=== PATIENT | female | born 1995 ===

== ENCOUNTER 2017-05-01 15:57 | Emergency (ER) | payer BC ==
[~2017-05-01] VITALS: Ht 170.2 cm; Wt 61.2 kg
--- NOTE | 2017-05-01 16:05 | ER Report ---
History and Physical Time Seen By MD: 16:05 HPI/ROS CHIEF COMPLAINT: Headache HISTORY OF PRESENT ILLNESS: This is a 21-year-old female who presents to the emergency department from the urgent care via EMS for a headache. According to the patient she was in bed last night had a drink of water and then "passed out " according to her boyfriend she wasn't on a coherent after she passed out they did come to the emergency department last night for evaluation however after sitting on the waiting room for a little while she didn't want to wait anymore and was feeling better decided to go home. Patient states that she still having a left-sided sort of parietal type of headache. Patient went to the urgent care for evaluation they were concerned with the headache, as well as having " passing out episodes" at urgent care. After talking to the patient the passing out episode was while they were trying to start an IV. Patient states she does have lower abdominal pain as well. Blurred vision with this headache. This is the worst headache she ever had. Patient denies traumatic events leading up to the headache. Patient denies fevers, chest pain, shortness of breath, nausea, vomiting, diarrhea or rashes. REVIEW OF SYSTEMS: Constitutional: No fever, no chills. Eyes: No discharge. ENT: No sore throat. Cardiovascular: No chest pain, no palpitations. Respiratory: No cough, no shortness of breath. Gastrointestinal: As above. Genitourinary: No hematuria. Musculoskeletal: No back pain. Skin: No rashes. Neurological: As above. Allergies: Coded Allergies: No Known Drug Allergies (Unverified , 05/01/17) Home Meds Active Scripts Ondansetron (ZOFRAN ODT) 4 Mg Tab.rapdis, 4 MG PO Q6H Y for NAUSEA/VOMITING, # 20 TAB.DIOMEDES Prov:FELISA ALTMAN [employer] 05/01/17 Past Medical/Surgical History Patient has a past medical and surgical history of tonsillitis, migraine headaches, wisdom teeth extraction, concussions. Reviewed Nurses Notes: Yes Constitutional Vital Sign - Last 24 Hours 05/01/17 05/01/17 05/01/17 05/01/17 15:57 15:58 16:27 16:34 Pulse 59 71 Resp 16 B/P (MAP) 118/90 118/90 (99) 121/88 (99) Pulse Ox 96 98 O2 Delivery Room Air 05/01/17 05/01/17 05/01/17 05/01/17 16:37 16:37 16:38 16:57 Pulse 70 64 62 74 B/P (MAP) 125/77 (93) 121/88 (99) 130/83 (99) 125/77 (93) 130/83 (99) Pulse Ox 97 05/01/17 05/01/17 05/01/17 05/01/17 17:27 17:32 17:47 18:02 Pulse 76 58 67 66 Pulse Ox 96 96 98 98 05/01/17 05/01/17 05/01/17 05/01/17 18:07 18:12 18:17 18:22 Pulse 66 61 70 81 Pulse Ox 97 98 97 98 05/01/17 05/01/17 05/01/17 18:27 18:31 18:32 Pulse 80 B/P (MAP) 104/59 (74) Pulse Ox 99 97 Intake and Output 05/01/17 05/01/17 05/02/17 15:00 23:00 07:00 Intake Total 2000 ml Balance 2000 ml Physical Exam General Appearance: The patient is alert, has no immediate need for airway protection and no signs of toxicity. Eyes: Pupils equal and round no pallor or injection. ENT, Mouth: Mucous membranes are moist. Posterior oropharynx erythema, 2+ tonsillar hypertrophy, uvula midline no edema. TMs intact, pearly lauren, no injection. Respiratory: There are no retractions, lungs are clear to auscultation. Cardiovascular: Regular rate and rhythm, no murmurs, clicks or rubs. Gastrointestinal: Abdomen is soft and left lower abdomen tender with palpation , no masses, bowel sounds normal. Neurological: Alert and oriented 4. Moving all extremity. Following all commands. No focal neuro deficits. Skin: Warm and dry, no rashes. Musculoskeletal: Neck is supple non tender. Extremities are nontender, nonswollen and have full range of motion. DIFFERENTIAL DIAGNOSIS: After history and physical exam differential diagnosis was considered for headache including but not limited to subarachnoid hemorrhage , migraine headache, tension headache and infectious causes such as meningitis, pharyngitis and sinusitis, abdominal pain in a female including but not limited to ovarian cyst, pelvic inflammatory disease, ovarian torsion, urinary tract infection, and appendicitis. Medical Decision Making Data Points Result Diagram: 05/01/17 1540 05/01/17 1540 Laboratory Hematology Test 05/01/17 15:40 05/01/17 16:40 05/01/17 16:42 Red Blood Count 5.01 M/uL (4.17-5.56) Mean Corpuscular Volume 89.9 fL (80.0-96.0) Mean Corpuscular Hemoglobin 30.4 pg (26.0-33.0) Mean Corpuscular Hemoglobin Concent 33.8 g/dL (32.0-36.0) Red Cell Distribution Width 13.4 % (11.5-14.5) Mean Platelet Volume 10.0 fL (7.2-11.1) Neutrophils (%) (Auto) 42.3 % (39.4-72.5) Lymphocytes (%) (Auto) 47.6 % (17.6-49.6) Monocytes (%) (Auto) 7.9 % (4.1-12.4) Eosinophils (%) (Auto) 1.6 % (0.4-6.7) Basophils (%) (Auto) 0.6 % (0.3-1.4) Nucleated RBC Relative Count (auto) 0.1 /100WBC Neutrophils # (Auto) 3.1 K/uL (2.0-7.4) Lymphocytes # (Auto) 3.5 K/uL (1.3-3.6) Monocytes # (Auto) 0.6 K/uL (0.3-1.0) Eosinophils # (Auto) 0.1 K/uL (0.0-0.5) Basophils # (Auto) 0.0 K/uL (0.0-0.1) Nucleated RBC Absolute Count (auto) 0.01 K/uL Sodium Level 139 mmol/L (137-145) Potassium Level 3.8 mmol/L (3.5-5.0) Chloride Level 105 mmol/L (98-107) Carbon Dioxide Level 21 mmol/L (22-31) Blood Urea Nitrogen 12 mg/dl (7-18) Creatinine 1.00 mg/dl (0.52-1.04) Glomerular Filtration Rate Calc > 60.0 Random Glucose 87 mg/dl (75-110) Calcium Level 9.8 mg/dl (8.4-10.2) Total Bilirubin 0.8 mg/dl (0.2-1.3) Aspartate Amino Transf (AST/SGOT) 31 U/L (0-35) Alanine Aminotransferase (ALT/SGPT) 31 U/L (0-56) Alkaline Phosphatase 87 U/L (0-126) Total Protein 8.0 gm/dl (6.3-8.2) Albumin 4.6 g/dl (3.5-5.0) Group A Streptococcus Screen Negative (NEGATIVE) Urine Color Yellow Urine Clarity Slightly-cloudy Urine pH 5.0 pH (4.8-9.5) Urine Specific [place] 1.021 Urine Protein Negative mg/dL (NEGATIVE) Urine Glucose (UA) Negative mg/dL (NEGATIVE) Urine Ketones Negative mg/dL (NEGATIVE) Urine Blood Negative (NEGATIVE) Urine Nitrite Negative (NEGATIVE) Urine Bilirubin Negative (NEGATIVE) Urine Urobilinogen Negative mg/dL (0.2-1.9) Urine Leukocyte Esterase Trace (NEGATIVE) Urine RBC 1 /HPF (0-2/HPF) Urine WBC 6 /HPF (0-5/HPF) Urine Squamous Epithelial Cells Many /LPF (</=FEW) Urine Bacteria Few /HPF (NONE-FEW) Urine Hyaline Casts Few /LPF (NONE-FEW) Urine Mucus Few /HPF (NONE-FEW) Urine HCG, Qualitative Negative (NEGATIVE) Chemistry Test 05/01/17 15:40 05/01/17 16:40 05/01/17 16:42 White Blood Count 7.4 k/uL (4.5-11.0) Red Blood Count 5.01 M/uL (4.17-5.56) Hemoglobin 15.2 g/dL (12.0-16.0) Hematocrit 45.0 % (34.0-47.0) Mean Corpuscular Volume 89.9 fL (80.0-96.0) Mean Corpuscular Hemoglobin 30.4 pg (26.0-33.0) Mean Corpuscular Hemoglobin Concent 33.8 g/dL (32.0-36.0) Red Cell Distribution Width 13.4 % (11.5-14.5) Platelet Count 198 K/uL (150-450) Mean Platelet Volume 10.0 fL (7.2-11.1) Neutrophils (%) (Auto) 42.3 % (39.4-72.5) Lymphocytes (%) (Auto) 47.6 % (17.6-49.6) Monocytes (%) (Auto) 7.9 % (4.1-12.4) Eosinophils (%) (Auto) 1.6 % (0.4-6.7) Basophils (%) (Auto) 0.6 % (0.3-1.4) Nucleated RBC Relative Count (auto) 0.1 /100WBC Neutrophils # (Auto) 3.1 K/uL (2.0-7.4) Lymphocytes # (Auto) 3.5 K/uL (1.3-3.6) Monocytes # (Auto) 0.6 K/uL (0.3-1.0) Eosinophils # (Auto) 0.1 K/uL (0.0-0.5) Basophils # (Auto) 0.0 K/uL (0.0-0.1) Nucleated RBC Absolute Count (auto) 0.01 K/uL Glomerular Filtration Rate Calc > 60.0 Calcium Level 9.8 mg/dl (8.4-10.2) Total Bilirubin 0.8 mg/dl (0.2-1.3) Aspartate Amino Transf (AST/SGOT) 31 U/L (0-35) Alanine Aminotransferase (ALT/SGPT) 31 U/L (0-56) Alkaline Phosphatase 87 U/L (0-126) Total Protein 8.0 gm/dl (6.3-8.2) Albumin 4.6 g/dl (3.5-5.0) Group A Streptococcus Screen Negative (NEGATIVE) Urine Color Yellow Urine Clarity Slightly-cloudy Urine pH 5.0 pH (4.8-9.5) Urine Specific [place] 1.021 Urine Protein Negative mg/dL (NEGATIVE) Urine Glucose (UA) Negative mg/dL (NEGATIVE) Urine Ketones Negative mg/dL (NEGATIVE) Urine Blood Negative (NEGATIVE) Urine Nitrite Negative (NEGATIVE) Urine Bilirubin Negative (NEGATIVE) Urine Urobilinogen Negative mg/dL (0.2-1.9) Urine Leukocyte Esterase Trace (NEGATIVE) Urine RBC 1 /HPF (0-2/HPF) Urine WBC 6 /HPF (0-5/HPF) Urine Squamous Epithelial Cells Many /LPF (</=FEW) Urine Bacteria Few /HPF (NONE-FEW) Urine Hyaline Casts Few /LPF (NONE-FEW) Urine Mucus Few /HPF (NONE-FEW) Urine HCG, Qualitative Negative (NEGATIVE) Urinalysis Test 05/01/17 16:42 Urine Color Yellow Urine Clarity Slightly-cloudy Urine pH 5.0 pH (4.8-9.5) Urine Specific [place] 1.021 Urine Protein Negative mg/dL (NEGATIVE) Urine Glucose (UA) Negative mg/dL (NEGATIVE) Urine Ketones Negative mg/dL (NEGATIVE) Urine Blood Negative (NEGATIVE) Urine Nitrite Negative (NEGATIVE) Urine Bilirubin Negative (NEGATIVE) Urine Urobilinogen Negative mg/dL (0.2-1.9) Urine Leukocyte Esterase Trace (NEGATIVE) Urine RBC 1 /HPF (0-2/HPF) Urine WBC 6 /HPF (0-5/HPF) Urine Squamous Epithelial Cells Many /LPF (</=FEW) Urine Bacteria Few /HPF (NONE-FEW) Urine Hyaline Casts Few /LPF (NONE-FEW) Urine Mucus Few /HPF (NONE-FEW) Urine HCG, Qualitative Negative (NEGATIVE) EKG/Imaging EKG Interpretation 12 lead EKG: Time of EKG 1712. Rhythm: Sinus bradycardia, ventricular rate 59 bpm. [place]: Rightward QRS: normal ST segments: No acute ST depression or elevation identified. Imaging EXAMINATION: Head CT without intravenous contrast HISTORY: Severe headache, passed out TECHNIQUE: Contiguous axial images were obtained from the skull base to the vertex without intravenous contrast. Sagittal and coronal reformatted images are also submitted. Dose Lowering Technique One of the following dose optimization techniques was utilized in the performance of this exam: Automated exposure control; adjustment of the mA and/ or kV according to the patient's size; or use of an iterative reconstruction technique. Specific details can be referenced in the facility's radiology CT exam operational policy. COMPARISON: None. FINDINGS: Brain volume: Normal. Ventricles: Normal. Acute ischemic changes: None. Hemorrhage: None. Masses / edema: None. Lauren-white: Negative. White matter: Normal. Vessels: Negative. Extra-axial: Negative. Calvarium / scalp: Negative. Skull base / visualized face: Negative. Visualized sinuses / orbits: Negative. IMPRESSION: Normal noncontrast head CT without evidence of mass lesion, acute infarct or hemorrhage. Report Dictated By: Meaghan Pandya MD at 05/01/2017 5:20 PM Report E-Signed By: Meaghan Pandya MD at 05/01/2017 5:22 PM VANESAN:PAM ED Course/Re-evaluation Clinical Indication for ER IV: Hydration, IV Access ED Course The patient was admitted to room. A history and physical were obtained. Differential diagnoses were considered. An IV was started at the urgent care. A 1 L normal saline bolus was given 2. 4 mg IV Zofran. Patient arrives alert and oriented and appropriate. A CBC, CMP, UA, hCG, GC chlamydia urine were obtained. Lab studies unremarkable. Negative UA. EKG showing sinus bradycardia. Patient does state that her lower abdominal pain is significantly improved, patient states that she thinks this is from "poop cramps" as noted below. A head CT was negative for any acute findings. I did review the results with the patient, she is relieved that there is nothing on the CT. I did tell her the headache and the near syncopal episode could be related to lack of hydration and the near syncopal episode at urgent care is likely a vasovagal event from starting the IV. I also told her that if anything shows up on the GC chlamydia that will give her call and start her on a course of medications. She is to follow up with the [facility] if no real improvement in the next 2-4 days, I also suggested following up with Neurology in [place] if the headaches continue. The patient had no other questions or concerns at the time of discharge, she states she is feeling better. Instructed to return to the ED for worsening symptoms or any other concerns. The patient is in agreement with this plan of care. 05/01/2017 4:47:15 pm the patient was given the option of a abdomen and pelvis CT which she declined she states that her lower abdominal pain is feeling better , she states that she feels like these are "poop cramps". Decision to Disposition Date: May 01, 2017 Decision to Disposition Time: 18:26 Depart Departure Latest Vital Signs Vital Signs Date Time Temp Pulse Resp B/P (MAP) Pulse Ox O2 Delivery O2 Flow Rate FiO2 05/01/17 18:32 97 05/01/17 18:31 104/59 (74) 05/01/17 18:27 80 05/01/17 15:57 16 Room Air Impression: Primary Impression: Near syncope Additional Impression: Headache Condition: Improved Disposition: HOME OR SELF-CARE New Scripts Ondansetron (ZOFRAN ODT) 4 Mg Tab.rapdis 4 MG PO Q6H Y for NAUSEA/VOMITING, #20 TAB.DIOMEDES Prov: FELISA ALTMAN 05/01/17 Patient Instructions: Acute Headache (ED), Near Syncope (ED) Additional Instructions: Drink plenty of fluids. Get plenty of rest. Take Zofran as needed for nausea and vomiting. Consider following up with [facility] in 2-4 days if no improvement. If you have persistent headaches consider following up with neurology in [place] for evaluation. May return to the emergency department for any other concerns or worsening symptoms. Problem Qualifiers Additional Impression: Headache Headache type: unspecified Headache chronicity pattern: acute headache Intractability: not intractable Qualified Codes: R51 - Headache FELISA ALTMAN-SHIRA May 01, 2017 16:05
[2017-05-01 16:28] LABS: PLATELET COUNT, AUTOMATED 198 K/uL (150-450)
[2017-05-01] MEDS ORDERED: EMS NS 0.9%(*) 1000 ML BAG 1,000 ML IV ONE (16:35)
--- NOTE | 2017-05-01 17:22 | EKG ---
FACILITY: [facility] PATIENT NAME: KELSEY COTTER : [id number] MR: [id number] V: [id number] EXAM DATE: ORDERING PHYSICIAN: FELISA ALTMAN TECHNOLOGIST: DARLENE Nunez Reason : SYNCOPE Blood Pressure : / mmHG Vent. Rate : 059 BPM Atrial Rate : 059 BPM P-R Int : 122 ms QRS Dur : 094 ms QT Int : 420 ms P-R-T Axes : 050 096 080 degrees QTc Int : 415 ms Sinus bradycardia Rightward axis No ST-T abnormalities No previous ECGs available Confirmed by ELIE ENAMORADO ([id number]) on 05/01/2017 10:27:51 PM Referred By: Confirmed By:ELIE ENAMORADO
--- NOTE | 2017-05-01 17:25 | RADIOLOGY IMAGING REPORT ---
FACILITY: [facility] [place] PATIENT NAME: Aryan Carter : 1995 MR: [id number] V: [id number] EXAM DATE: ORDERING PHYSICIAN: FELISA ALTMAN TECHNOLOGIST: Location: [facility] [place] Patient: Aryan Carter : 1995 Visit/Account:[id number] Date of Sevice: 05/01/2017 EXAMINATION: Head CT without intravenous contrast HISTORY: Severe headache, passed out TECHNIQUE: Contiguous axial images were obtained from the skull base to the vertex without intraven ous contrast. Sagittal and coronal reformatted images are also submitted. Dose Lowering Technique One of the following dose optimization techniques was utilized in the performance of this exam: Autom ated exposure control; adjustment of the mA and/or kV according to the patient's size; or use of an i terative reconstruction technique. Specific details can be referenced in the facility's radiology C T exam operational policy. COMPARISON: None. FINDINGS: Brain volume: Normal. Ventricles: Normal. Acute ischemic changes: None. Hemorrhage: None. Masses / edema: None. Lauren-white: Negative. White matter: Normal. Vessels: Negative. Extra-axial: Negative. Calvarium / scalp: Negative. Skull base / visualized face: Negative. Visualized sinuses / orbits: Negative. IMPRESSION: Normal noncontrast head CT without evidence of mass lesion, acute infarct or hemorrhage. Report Dictated By: Meaghan Pandya MD at 05/01/2017 5:20 PM Report E-Signed By: Meaghan Pandya MD at 05/01/2017 5:22 PM WSN:[email or web address]
[2017-05-01] MEDS ORDERED: NS(*) 0.9% 1000 ML BAG 1,000 ML IV ONE (17:40)
[2017-05-01] MEDS ORDERED: ONDANSETRON 4 MG/2 ML VIAL IVP ONE (17:40)
[2017-05-01] MEDS ORDERED: ONDA4TAB PO (18:00)
[2017-05-01 18:31] VITALS: BP 104/59
== END 2017-05-01 18:30 | disposition home or self-care (01) ==
LOC: ER 16:00
DX: R51 Headache (principal); R55 Syncope and collapse; R00.1 Bradycardia, unspecified
CPT/HCPCS: 70450; 81001; 81025; 85025; 87081; 87491; 87591; 87880; 93005; 96361; 96374; 99284; J2405; J7030; 82040; 82247; 82310; 82374; 82435; 82565; 82947; 84075; 84132; 84155; 84295; 84450; 84460; 84520

== ENCOUNTER → 2017-05-01 | Outpatient (CLI) | payer BC ==
[~2017-05-01] MED LIST: ONDA4TAB PO
== END ==
LOC: AMB 15:32
PROVIDERS: ATTEND Nurse Practitioner
DX: R40.4 Transient alteration of awareness (principal); R53.81 Other malaise
CPT/HCPCS: A0425; A0427